=== PATIENT | female | born 1980 | race Caucasian/White ===

== ENCOUNTER 2020-05-25 09:54 | Outpatient (CLI) | payer SELFPAY ==
--- NOTE | 2020-05-25 09:30 | US_ITS ---
WS: [id number] INDICATION: Ultrasound soft tissue. Right calf pain and ecchymosis. TECHNIQUE: Ultrasound right calf area of concern. FINDINGS: Subcutaneous edema in the right calf. Hematoma in the area of ecchymosis measuring 5.6 x 1. 0 x 1.3 CM. US/US soft tissue/extremity [id number] IMPRESSION: Subcutaneous edema and hematoma in the right calf measuring 5.6 x 1 .3 cm
== END 2020-05-25 09:55 | disposition home or self-care (01) ==
LOC: US 09:58
PROVIDERS: PCP Nurse Practitioner; Visit Provider Nurse Practitioner
DX: S80.11XA Contusion of right lower leg, initial encounter (principal); R60.0 Localized edema; X58.XXXA Exposure to other specified factors, initial encounter
CPT/HCPCS: 76882

== ENCOUNTER → 2024-03-08 15:30 | Outpatient (BNVA) | payer BC, MEDICAID, SELFPAY | PROVIDERS: PCP Nurse Practitioner; Visit Provider Nurse Practitioner Family | DX: M17.11 Unilateral primary osteoarthritis, right knee (principal) | CPT/HCPCS: 73562 ==

== ENCOUNTER 2024-03-16 20:27 | Emergency (ER) | payer BC, MEDICAID, SELFPAY ==
[2024-03-16 20:31] VITALS: BP 143/91; PULSE 85; RESP 18; TEMP 36.6; O2SAT 100; BMI 32.1
--- NOTE | 2024-03-16 21:01 | W.ED.BACK ---
HPI - Back Pain/Injury General: Chief Complaint: Back Pain/Injury Stated Complaint: back pain right knee Time Seen by Provider: 03/16/24 20:30 Source: patient Mode of arrival: ambulatory Limitations: no limitations History of Present Illness: Patient is a 43-year-old female presenting to the emergency department due to atraumatic back pain beginning 2 days ago while weed eating. Patient states the pain is to her paralumbar muscles as well as to her lumbar spine. No history of previous. No history of surgery. Has been taking [id number] pain medications and using heat pad with no relief. She notes that the pain is worsened with palpation and any movement whatsoever. She does appear uncomfortable on initial presentation, however vitals are normal at this time. She does not endorse any red flag back symptoms. MD elicited complaint: back pain Onset (ago): day(s) Timing: constant Severity: severe Similar Symptoms Previously: No Location: lumbar spine, right lower back and left lower back Radiation: none Exacerbating factors: movement Associated symptoms: Reports no associated symptoms; Deny abdominal pain, chills, fever(s), nausea or vomiting Treatments prior to arrival: heat therapy, NSAIDS and acetaminophen Related Data Previous Rx's Medication Instructions Recorded citalopram 20 mg tablet (Celexa) 20 mg PO DAILY #30 tabs 02/11/24 hydroxyzine pamoate 25 mg capsule 25 mg PO BID PRN anxiety #60 caps 02/11/24 lisinopril 20 1 tab PO DAILY #30 tabs 02/11/24 mg-hydrochlorothiazide 25 mg tablet prednisone 10 mg tablets in a dose See Rx Instructions PO PER PKG DIR 02/11/24 pack #21 ea methocarbamol 750 mg tablet 750 mg PO Q8H 5 days #15 tabs 03/16/24 Allergies Allergy/AdvReac Type Severity Reaction Status Date / Time No Known Allergies Allergy Unverified 03/05/24 09:13 Review of Systems General: Reports: 10 or more systems reviewed and unremarkable except in HPI and below Const: Denies: fever(s) or chills Card: Denies: chest pain Resp: Denies: dyspnea or productive cough GI: Denies: abdominal pain, nausea, vomiting or diarrhea : Denies: flank pain Musc: Reports: back pain; Denies: neck pain, extremity pain, extremity swelling, joint pain, joint swelling, joint redness, joint warmth, limited range of motion or muscle weakness Skin/Breast: Denies: rash Neuro: Denies: headache(s), numbness in extremities or weakness in extremities PFSH ED PFSH: Medical History Essential hypertension Cardiomyopathy Anxiety, generalized Surgical History History of foot surgery Right History of appendectomy History of cholecystectomy Family History Other Heart disease Denies family history of Bleeding disorder Social History Smoking and tobacco/nicotine status: current every day tobacco/nicotine user Second hand smoke exposure: Yes Alcohol intake: current Alcohol intake frequency: holidays/special occasions only Substance/Drug Use: current Adopted: No Caregiver/support person: No Lives independently: Yes Household members: significant other Housing: Manufactured/Mobile home Marital status: Single service: No Current occupational status: unemployed Do you think of yourself as: Lesbian/Capps/Homosexual Current gender identity: Female Physical Exam Const: COMMON NORMALS: patient oriented x3, no limitations, healthy appearing, alert and well nourished GENERAL APPEARANCE: in distress (Appears uncomfortable and in pain, clutching back) HENMT: COMMON NORMALS: normocephalic and atraumatic HEAD & SCALP: normocephalic and atraumatic Neck/C-Spine: COMMON NORMALS: full ROM, supple and no meningeal signs Resp: COMMON NORMALS: normal respiratory effort, No use of accessory muscles and clear to auscultation bilaterally AUSCULTATION: clear to auscultation bilaterally Cardio: COMMON NORMALS: regular rate and regular rhythm RATE: regular rate RHYTHM: regular rhythm Back/Pelvis: COMMON NORMALS: straight leg raise negative bilaterally LUMBAR SPINE/LOWER BACK: Yes normal to inspection OTHER: Reproducible tenderness to palpation of the paralumbar muscles as well as to the lumbar spine, however there is no bruising or signs of deformity or trauma. Range of motion severely limited due to pain Extremity: COMMON NORMALS: normal to inspection, full ROM, capillary refill normal, no joint enlargement and no clubbing, cyanosis or edema Neuro: COMMON NORMALS: patient oriented x3, moves all extremities, no focal motor deficits and no sensory deficits noted SENSORIUM/ORIENTATION: Yes alert MENINGEAL SIGNS: Yes no meningeal signs Skin: COMMON NORMALS: no rashes or lesions noted GENERAL SKIN EXAM: no rashes or lesions noted Course Vital Signs: Vital signs: Vital Signs Temperature 97.8 F 03/16/24 20:31 Pulse Rate 85 03/16/24 20:31 Respiratory Rate 18 03/16/24 20:31 Blood Pressure 143/91 03/16/24 20:31 Pulse Oximetry 100 03/16/24 20:31 Oxygen Delivery Me thod Room Air 03/16/24 20:31 MDM - Back Pain/Injury Medical Decision Making Patient presented for evaluation of low back pain that was atraumatic and began a couple days ago. Initially she is given a dose of Norflex and Toradol, upon recheck states it is not much better. Her vitals have been stable and physical exam did not demonstrate any red flag back signs and she did not report any symptoms. X-ray obtained that did not show any acute findings, did show large stool burden which cannot be completely ruled out as the cause of her pain. Did tell her to take MiraLAX and will prescribe her muscle relaxers to take. For any continuation of pain she is encouraged to follow-up with her primary doctor so that she can obtain an MRI, however other return precautions are given. Labs Radiology Impressions Lumbar Spine X-Ray 03/16/24 21:49 IMPRESSION: No acute fractures or subluxations. Moderate degenerative changes of the lumbar spine. Large stool burden. All radiology interpretation(s) finalized by discharge Discharge Plan Discharge Patient Disposition: Home Clinical Impression: Strain of lumbar region Condition: Stable Prescriptions: New methocarbamol 750 mg tablet 750 mg PO Q8H 5 Days Qty: 15 0RF No Action prednisone 10 mg tablets,dose pack See Rx Instructions PO PER PKG DIR Qty: 21 0RF Rx Instructions: PO PER PKG DIR lisinopril-hydrochlorothiazide 20-25 mg tablet 1 tab PO DAILY Qty: 30 2RF hydroxyzine pamoate 25 mg capsule 25 mg PO BID PRN (Reason: anxiety) Qty: 60 2RF citalopram [Celexa] 20 mg tablet 20 mg PO DAILY Qty: 30 2RF Discharge Orders: Discharge ED (Routine); Ordered 03/16/24 Ordered By: Terrell Bunch Referrals: Cristino Pollack, [facility] [Primary Care Provider] - Discharge Diet: Usual diet Discharge Activity: Increase activity as tolerated Patient Instructions: Low Back Strain (ED) Activity Restrictions/Additional Instructions: Take muscle relaxers as prescribed. Gentle range of motion exercises as tolerated. Ice/heat. Take MiraLAX for any constipation. Follow-up with your primary care provider as discussed. Return with any new or concerning symptoms. Coding Level of Care Code [employer] Consultant for Roxanne Almonte
[2024-03-16] MEDS: ketorolac 60 mg/2 mL INJ IM (21:16)
[2024-03-16] MEDS: orphenadrine 30 mg/mL Inj 2 mL 60 MG IM (21:16)
--- NOTE | 2024-03-16 21:49 | XRR_ITS ---
PROCEDURE INFORMATION: Exam: XR Lumbosacral Spine Exam date and time: 03/16/2024 9:52 PM Age: 43 years old Clinical indication: Low back pain; Additional info: Pain x2 days TECHNIQUE: Imaging protocol: Radiologic exam of the lumbosacral spine. Views: 2 or 3 views. COMPARISON: No relevant prior studies available. FINDINGS: Bones/joints: No acute fractures or subluxations. Moderate to severe intervertebral disc space narrowing of L3-L4. Normal sagittal alignment. The vertebral body heights are preserved. Bilateral facet arthropathy. Posterior elements are intact. The pubic symphysis in bilateral sacroiliac joints are well aligned. Soft tissues: Unremarkable. Other findings: Large stool burden. XR/XR lumbar spine 2-3V* [id number] IMPRESSION: No acute fractures or subluxations. Moderate degenerative changes of the lumbar spine. Large stool burden.
[2024-03-16 22:31] VITALS: BP 143/91; PULSE 85; RESP 18; TEMP 36.6; O2SAT 100
== END 2024-03-16 22:36 | disposition home or self-care (01) ==
PROVIDERS: Emergency Provider Physician Assistant; PCP Nurse Practitioner
DX: S39.012A Strain of muscle, fascia and tendon of lower back, initial encounter (principal); Z72.0 Tobacco use; I11.9 Hypertensive heart disease without heart failure; I43 Cardiomyopathy in diseases classified elsewhere; X50.9XXA Other and unspecified overexertion or strenuous movements or postures, initial encounter; Y93.H2 Activity, gardening and landscaping
CPT/HCPCS: 72100; 96372; 99284; J1885; J2360

== ENCOUNTER 2024-03-19 23:18 | Emergency (ER) | payer BC, MEDICAID, SELFPAY ==
[2024-03-19 23:24] VITALS: BP 141/74; PULSE 85; RESP 16; TEMP 36.7; O2SAT 97; BMI 32.1
--- NOTE | 2024-03-20 01:55 | ED_ITS ---
HPI - Back Pain/Injury General: Chief Complaint: Back Pain/Injury Stated Complaint: Back Pain Time Seen by Provider: 03/20/24 01:36 History of Present Illness: 43-year-old female who presents emergenc y room with continued low back pain. She was seen in the emergency room couple days ago and started on a muscle relaxer and some steroid. She says the pain so bad now she cannot get up to go to the bathroom. No saddle numbness, no urinary retention or incontinence, no focal motor deficit, no sensory deficit. no recent fever. no cough. no shortness of breath. no chest pain. no abdominal pain. no nausea or vomiting. no dysuria. no altered mental status. no edema. Related Data Previous Rx's Medication Instructions Recorded citalopram 20 mg tablet (Celexa) 20 mg PO DAILY #30 tabs 02/11/24 hydroxyzine pamoate 25 mg capsule 25 mg PO BID PRN anxiety #60 caps 02/11/24 lisinopril 20 1 tab PO DAILY #30 tabs 02/11/24 mg-hydrochlorothiazide 25 mg tablet prednisone 10 mg tablets in a dose See Rx Instructions PO PER PKG DIR 02/11/24 pack #21 ea methocarbamol 750 mg tablet 750 mg PO Q8H 5 days #15 tabs 03/16/24 cyclobenzaprine 10 mg tablet 10 mg PO Q8H #20 tabs 03/20/24 diclofenac sodium 50 mg 50 mg PO BID PRN pain #14 tabs 03/20/24 tablet,delayed release hydrocodone 5 mg-acetaminophen 325 1 tab PO Q6H PRN pain #20 tabs 03/20/24 mg tablet polyethylene glycol 3350 17 17 g PO DAILY #510 grams 03/20/24 gram/dose oral powder (Miralax) prednisone 20 mg tablet 60 mg (3 x 20 mg) PO DAILY #20 tabs 03/20/24 Allergies Allergy/AdvReac Type Severity Reaction Status Date / Time No Known Allergies Allergy Unverified 03/05/24 09:13 Review of Systems Narrative: Constitutional symptoms: Negative except as documented in HPI. Skin symptoms: Negative except as documented in HPI. Eye symptoms: Negative except as documented in HPI. ENMT symptoms: Negative except as documented in HPI. Respiratory symptoms: Negative except as documented in HPI. Cardiovascular symptoms: Negative except as documented in HPI. Gastrointestinal symptoms: Negative except as documented in HPI. Genitourinary symptoms: Negative except as documented in HPI. Musculoskeletal symptoms: Negative except as documented in HPI. Neurologic symptoms: Negative except as documented in HPI. Psychiatric symptoms: Negative except as documented in HPI. Endocrine symptoms: Negative except as documented in HPI. PFSH ED PFSH: Medical History Essential hypertension Cardiomyopathy Anxiety, generalized Surgical History History of foot surgery Right History of appendectomy History of cholecystectomy Family History Other Heart disease Denies family history of Bleeding disorder Social History Smoking and tobacco/nicotine status: current every day tobacco/nicotine user Second hand smoke exposure: Yes Alcohol intake: current Alcohol intake frequency: holidays/special occasions only Substance/Drug Use: current Adopted: No Caregiver/support person: No Lives independently: Yes Household members: significant other Housing: Manufactured/Mobile home Marital status: Single service: No Current occupational status: unemployed Do you think of yourself as: Lesbian/Capps/Homosexual Current gender identity: Female Physical Exam Narrative: EXAM NARRATIVE: General: Alert, no acute distress. Head: Normocephalic Neck: Trachea midline Eye: Extraocular movements are intact. Ears, nose, mouth and throat: Oral mucosa moist Respiratory: Respirations are non-labored Musculoskeletal: Normal ROM Back: no step off, no focal tenderness, some paraspinal muscle tenderness Neurological: Alert and oriented to person, place, time, and situation, No focal neurological deficit observed. Psychiatric: Cooperative, appropriate mood & affect. Course Vital Signs: Vital signs: Vital Signs Temperature 98.1 F 03/19/24 23:24 Pulse Rate 85 03/19/24 23:24 Respiratory Rate 16 03/19/24 23:24 Blood Pressure 141/74 03/19/24 23:24 Pulse Oximetry 97 03/19/24 23:24 Oxygen Delivery Me thod Room Air 03/19/24 23:24 MDM - Back Pain/Injury Medical Decision Making Assessment and plan: Low back pain ?IV Dilaudid, Decadron, Norflex and Toradol in the emergency room - Discharged home - Discussed plan with patient. Answered any questions. - Evaluation and treatment of this problem were appropriate in the emergency setting. No radiology studies performed this visit Discharge Plan Discharge Patient Disposition: Home Clinical Impression: Lumbar radiculopathy Condition: Stable Prescriptions: New cyclobenzaprine 10 mg tablet 10 mg PO Q8H Qty: 20 0RF hydrocodone-acetaminophen 5-325 mg tablet 1 tab PO Q6H PRN (Reason: pain) Qty: 20 0RF prednisone 20 mg tablet 60 mg PO DAILY Qty: 20 0RF Rx Instructions: 3 tabs (60 mg) x 3 days. 2 tabs (40 mg) x 3 days. 1 tab (20 mg) x 3 days. 1/2 tab (10 mg) x 4 days diclofenac sodium 50 mg tablet,delayed release (DR/EC) 50 mg PO BID PRN (Reason: pain) Qty: 14 0RF Miralax 17 gram/dose powder 17 g PO DAILY Qty: 510 0RF Rx Instructions: Take 1 scoop daily while taking pain medications. No Action prednisone 10 mg tablets,dose pack See Rx Instructions PO PER PKG DIR Qty: 21 0RF Rx Instructions: PO PER PKG DIR lisinopril-hydrochlorothiazide 20-25 mg tablet 1 tab PO DAILY Qty: 30 2RF hydroxyzine pamoate 25 mg capsule 25 mg PO BID PRN (Reason: anxiety) Qty: 60 2RF citalopram [Celexa] 20 mg tablet 20 mg PO DAILY Qty: 30 2RF methocarbamol 750 mg tablet 750 mg PO Q8H 5 Days Qty: 15 0RF Discharge Orders: Discharge ED (Routine); Ordered 03/20/24 Ordered By: Marta Singletary Referrals: Cristino Pollack, [facility] [Primary Care Provider] - Discharge Diet: Usual diet Discharge Activity: Increase activity as tolerated Patient Instructions: Back Pain (ED) Activity Restrictions/Additional Instructions: Discontinue the prednisone and methocarbamol you have been prescribed previously and start the medications that I have prescribed today. Thank you for choosing [facility] for your healthcare needs today. Please realize this is an emergency room and that we are providing you with a medical screening exam and this may not be complete and all inclusive of all the testing and or work up that you may need to determine your ailment or severity of your illness. You have been screened and evaluated and felt safe for discharge. Health conditions do change or evolve sometimes and as such it is important that you follow up with your Primary Doctor to be re checked, 3-5 days is a general good time frame for follow up. You are always welcome to return to the ED for re assessment if your symptoms are worsening or you have new concerns Coding Level of Care Code ED [employer] Drier Operator for Roxanne Almonte
[2024-03-20] MEDS: ketorolac 60 mg/2 mL INJ IM (02:33)
[2024-03-20] MEDS: HYDROmorphone 1 mg/mL INJ 1 mL IVP (02:34)
[2024-03-20] MEDS: orphenadrine 30 mg/mL Inj 2 mL 60 MG IVP (02:34)
[2024-03-20] MEDS: dexamethasone 10 mg/mL INJ IVP (02:34)
[2024-03-20 02:47] VITALS: PULSE 10; O2SAT 95
--- NOTE | 2024-03-20 02:58 | PC.NURSE ---
Pt's IVP medications were given IM due to the pt have poor venous access. Dr Singletary gave the verbal order for the medications to be given IM.
[2024-03-20 03:16] VITALS: PULSE 72; RESP 14; O2SAT 99
== END 2024-03-20 03:17 | disposition home or self-care (01) ==
PROVIDERS: Emergency Provider Emergency Medicine; PCP Nurse Practitioner
DX: M54.16 Radiculopathy, lumbar region (principal); Z72.0 Tobacco use; I11.9 Hypertensive heart disease without heart failure; I43 Cardiomyopathy in diseases classified elsewhere
CPT/HCPCS: 96372; 96374; 96375; 99284; J1100; J1170; J1885; J2360

== ENCOUNTER → 2024-04-19 12:04 | Outpatient (BNVA) | payer BC, MEDICAID, SELFPAY | PROVIDERS: PCP Nurse Practitioner; Visit Provider Nurse Practitioner | DX: M54.50 Low back pain, unspecified (principal); M79.604 Pain in right leg | CPT/HCPCS: 80053; 85025; 85651; 86140 ==

== ENCOUNTER 2024-12-22 15:35 | Outpatient (CLI) | payer BC, MEDICAID, SELFPAY ==
--- NOTE | 2024-12-22 15:20 | MM_ITS ---
WS: [id number] BILATERAL 3D TOMOSYNTHESIS DIGITAL SCREENING MAMMOGRAPHY WITH CAD CLINICAL INFORMATION: Z12.31 - Encounter for screening mammogram for malignant ... HISTORY: Screening mammogram. No current complaints. COMPARISON: Baseline TECHNIQUE: Bilateral CC and MLO views. FINDINGS: Scattered fibroglandular densities bilaterally. No suspicious focal mass, asymmetry, calcifications, or architectural distortion. No evidence of malignancy. Lucent centered calcifications LEFT breast MM/MM scr BI tomosynthesis [id number] IMPRESSION: DENSITY: There are scattered areas of fibroglandular density. BI-RADS: 2 - Benign. FOLLOW UP: 1 Year Follow-up Recommend return to annual screening mammography.
== END 2024-12-22 15:36 | disposition home or self-care (01) ==
PROVIDERS: PCP Nurse Practitioner; Visit Provider Nurse Practitioner
DX: Z12.31 Encounter for screening mammogram for malignant neoplasm of breast (principal); R92.323 Mammographic fibroglandular density, bilateral breasts; R92.1 Mammographic calcification found on diagnostic imaging of breast
CPT/HCPCS: 77063; 77067